=== PATIENT | female | born 1975 ===

== ENCOUNTER 2020-05-20 21:07 | Outpatient (REF) | payer BC, SELFPAY ==
[2020-05-23 09:37] LABS: COVID-19 RT-PCR Result NEGATIVE (Negative)
== END 2020-05-20 21:27 ==
LOC: NCHCN 21:07
PROVIDERS: Visit Provider Internal Medicine
DX: Z20.828 Contact with and (suspected) exposure to other viral communicable diseases (principal)
CPT/HCPCS: U0003